=== PATIENT | male | born 1960 | race Caucasian/White ===

== ENCOUNTER → 2021-05-11 | Day surgery (SDC) | payer OTHER ==
[~2021-05-11] MED LIST: COZAAR 25 MG TA25 M1 PO; METFORMIN HCL500 M3 PO; NORCO5 PO; ROSUVASTATIN CA10 MG PO; ZETIA10 MG PO
--- NOTE | ~2021-05-11 | OP ---
[facility] [address] [place] [address] OPERATIVE REPORT Name: FRANK HAMEEDTERONICCI Room: [facility].#: [id number] Admission: 05/11/21 Attend Phys: Cb Palacios Discharge: Date of : 56 Report #: [id number] THIS REPORT FOR: cc: Samra Arriaga Anna S. DO Patterson,Cb Villaseñor MD ~ DATE OF SURGERY: 05/11/2021 PREOPERATIVE DIAGNOSIS: Chronic cholecystitis and gallbladder polyp. POSTOPERATIVE DIAGNOSIS: Chronic cholecystitis and gallbladder polyp. OPERATION: Laparoscopic cholecystectomy. SURGEON: Dr. Cb Palacios. ANESTHESIA: General. ESTIMATED BLOOD LOSS: Minimal. SPECIMENS: Gallbladder. DESCRIPTION OF PROCEDURE: After informed consent was obtained, the patient was brought to the operating room and placed supine. SCDs were placed and working, preoperative antibiotics were administered, general anesthesia was induced. The abdomen was prepped and draped in the usual sterile fashion. A 10 mm incision was made above the umbilicus. Fascia was incised and a trocar was placed. Pneumoperitoneum was established. Three right upper quadrant 5 mm ports were placed. Gallbladder was grasped at the fundus and retracted cephalad. Infundibulum was grasped and retracted laterally. I dissected out the cystic duct and cystic artery. Cystic plate was fully identified. Cystic duct and artery were clipped and ligated leaving 2 clips on the remaining duct and one on the remaining artery. Gallbladder was then taken off the liver bed with electrocautery. It was placed into an Endopouch and removed. Fascia was then closed with a epakkd-pb-yympb 0 Vicryl. Skin was closed with 4-0 Monocryl. Incisions were dressed with Steri-Strips. COMPLICATIONS: None. DISPOSITION: The patient was taken to recovery in satisfactory condition. By: [id number] Palacios MD /nt
[2021-05-11 06:52] LABS: HEMATOCRIT 42.4 % (42.0-52.0); HEMOGLOBIN 14.1 gm/dL (14.0-18.0); MCH 29.3 pg (26.0-34.0); MCHC 33.1 g/dL (28.0-37.0); MCV 88.6 fL (80.0-100.0); MPV 7.4 fl. (7.2-11.1); RBC 4.79 mil/uL (4.50-6.00); RDW-CV 14.1 % (10.5-14.5); WBC 6.4 thou/uL (4.0-11.0)
[2021-05-11 07:14] LABS: CALCIUM 8.9 mg/dL (8.5-10.1); CREATININE 0.6 mg/dL (0.6-1.3)
[2021-05-11 07:17] LABS: ALBUMIN 3.8 g/dL (3.4-5.0); TOTAL BILIRUBIN 0.5 mg/dL (<0.1-1.0)
--- NOTE | 2021-05-11 12:27 | EKG ---
[place] [address] ELECTROCARDIOGRAM REPORT Name: NICCI DUFFY Room: [facility]#: [id number] Admission: 05/11/21 Attend Phys: Cb Xiong Discharge: Date of : 56 Date of Service: 05/11/21623 Report #: [id number] THIS REPORT FOR: //name// [facility] Test Date: 2021-05-11 Test Time: 06:24:16 Pat Name: NICCI KEANEODepartment: Room: Gender: Corporation Lawyer: : 1960 Requested By: Cb Palacios Order Number: [id number] MD: Bao Shin Measurements Intervals [place] Rate: 65 P: 20 [place]: 147 QRS: -12 QRSD: 100 T: 27 QT: 434 QTc: 452 Interpretive Statements Sinus rhythm No previous ECG available for comparison Electronically Signed On 05-11-2021 12:27:20 [employer] SPECIALIST by Bao Shin [email or web address] <ELECTRONICALLY SIGNED> By: Bao Shin MD, [facility] 05/11/21 1227 Bao Shin MD, [facility] /EPI
== END | disposition home or self-care (01) ==
LOC: M.SUR 06:00
PROVIDERS: ATTEND Surgery
DX: K81.1 Chronic cholecystitis (principal); R10.11 Right upper quadrant pain; Z98.890 Other specified postprocedural states; Z79.899 Other long term (current) drug therapy; Z20.822 Contact with and (suspected) exposure to COVID-19